=== PATIENT | female | born 1940 | race Caucasian/White ===

== ENCOUNTER → 2018-01-07 | Outpatient (CLI) | payer MEDICARE, BC ==
--- NOTE | 2018-01-07 09:53 | US ---
EXAMINATION TYPE: US abdomen complete DATE OF EXAM: 01/07/2018 COMPARISON: CT Chest today. CLINICAL HISTORY: I74.4 ABDOMEN BLOATING, HISTORY OF BREAST CANCER. Pt states ABD bloating, history o f breast CA EXAM MEASUREMENTS: Liver Length: 25.6 cm CBD: 0.2 cm Right Kidney: 9.3 x 4.4x 4.6 cm Left Kidney: 11.4 x 7.1 x 5.5 cm Morbidly obese pt, difficult scan Pancreas: Body wnl, head and tail obscured by overlying bowel gas Liver: Increased attenuation Gallbladder: Surgically absent Evidence for sonographic Gipson's sign: No CBD: wnl Spleen: Unable to visualize due to large pt body habitus and position Right Kidney: Appeared atrophic Left Kidney: wnl Upper IVC: wnl Abd Aorta: Obscured by overlying bowel gas Pt has area of skin "dimpling" LLQ, area scanned and no abnormality could be appreciated The visualized liver is heterogeneously hyperechoic consistent with fatty infiltration as seen on rec ent CT. The intrahepatic portion of the IVC and proximal abdominal aorta are within normal limits leif th seen better on recent CT. Gallbladder noted surgically absent. Common bile duct is unremarkable. The visualized portions of the pancreas are homogenous. Portions obscured by overlying bowel gas vijay ear within normal limits on same day CT . The spleen is suboptimally evaluated on ultrasound but appe ared unremarkable on recent CT. Right kidney is smaller in size with cortical thinning. No hydronephr osis evident bilaterally. No renal lesions are seen. IMPRESSION: Marked fatty infiltration of liver. Asymmetric atrophy of right kidney.
== END ==
LOC: RADUSWWP 12:00
PROVIDERS: ATTEND Internal Medicine Medical Oncology
DX: K76.0 Fatty (change of) liver, not elsewhere classified (principal); N26.1 Atrophy of kidney (terminal)
CPT/HCPCS: 76700

== ENCOUNTER → 2018-01-07 | Outpatient (CLI) | payer MEDICARE, BC ==
--- NOTE | 2018-01-07 10:21 | CT ---
EXAMINATION TYPE: CT chest w con DATE OF EXAM: 01/07/2018 COMPARISON: NONE HISTORY: Shortness of breath CT DLP: 835.5 mGycm. Automated Exposure Control for Dose Reduction was Utilized. TECHNIQUE: CT scan of the thorax is performed following with IV Contrast, patient injected with 100 mL of Isovue 300. FINDINGS: LUNGS: There is subsegmental multifocal lingular and bibasilar atelectasis. No focal consolidation or concerning pulmonary mass. No pulmonary fibrosis are significant emphysematous changes. There is no pleural effusion or pneumothorax seen. The tracheobronchial tree is patent. MEDIASTINUM: The stomach is largely intrathoracic in folds upon itself. There is also herniation of m esenteric fat, a portion of the dorsal pancreas, and mesenteric vessels through the diaphragmatic def ect. There are no greater than 1 cm hilar or mediastinal lymph nodes. No pericardial effusion is se en. The main pulmonary artery is enlarged measuring 3.8 cm. Mild three-vessel coronary artery calcif ications are seen. Ascending thoracic aorta is nonenlarged. There is incidental note is made of a bov ine aortic arch. OTHER: Hepatic parenchyma is diffusely hypoattenuated in comparison to that of the spleen, most comm only seen in hepatic steatosis. This finding limits evaluation for hepatic masses. No gross evidence of hepatic mass is seen. No intrahepatic biliary ductal dilatation. There is volume averaging over th e left adrenal gland on axial images with no discrete lesion seen on coronal images. Mild degenerativ e changes of the thoracic spine are noted. IMPRESSION: 1. Large hiatal hernia/predominantly intrathoracic stomach with herniation of mesenteric fat, vascula ture, and a portion of the dorsal pancreas into the posterior mediastinum impressing upon the lower l obes and creating atelectasis. 2. Scattered subsegmental multifocal atelectasis with no concerning pulmonary mass or consolidation. No findings of interstitial lung disease, pulmonary fibrosis or focal consolidation. 3. Enlargement of the main pulmonary artery, that may clinically correlate with pulmonary arterial hy pertension.
== END | disposition home or self-care (01) ==
LOC: RADCTMAIN 07:38
PROVIDERS: ATTEND Internal Medicine
DX: J98.11 Atelectasis (principal); I77.89 Other specified disorders of arteries and arterioles
CPT/HCPCS: 82565; 84520; 71260; 36415; Q9967

== ENCOUNTER 2018-06-30 12:38 | Inpatient (IN) | payer MEDICARE, BC ==
[2018-06-30] MEDS ORDERED: SODIUM CHLORIDE 0.9% 500 ML 500 ML IV STA (12:43)
[2018-06-30] MEDS ORDERED: EPINEPHrine 10 ML SYRINGE (0.1 MG/ML) ONE (12:48)
[2018-06-30] MEDS ORDERED: SODIUM BICARB 8.4% 50 ML SYR (1 MEQ/ML) ONE (12:48)
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
--- NOTE | 2018-06-30 13:09 | XR ---
EXAMINATION TYPE: XR chest 1V portable DATE OF EXAM: 06/30/2018 COMPARISON: Outside chest x-ray one day earlier. CT chest January 07, 2018. HISTORY: Cardiac arrest. TECHNIQUE: Single AP portable frontal supine view of the chest is obtained. FINDINGS: There is new endotracheal tube roughly 4 to 5 cm above the severiano at superior aortic knob level. Overlying defibrillator pad and EKG leads are seen. There is continued progression of right jair ng opacity without large right pleural effusion identified increased in size from chest x-ray one day earlier. There is persistent left basilar opacity. Cardiac silhouette size is stable and upper limit s of normal. No distinct mediastinal shift is seen. Retrocardiac opacity consistent with large hiatal hernia remains present. Osseous structures are intact. IMPRESSION: 1. New endotracheal tube satisfactory in position. 2. Large right pleural effusion increased in size from one day earlier. Patchy left basilar acute ate lectasis and/or infiltrate redemonstrated not significantly changed from one day earlier.
[2018-06-30] MEDS ORDERED: LIDOCAINE 1% INJ 10MG/ML (20 ML MDV) ONE (13:20)
[2018-06-30] MEDS ORDERED: ASPIRIN 325 MG TAB ONE (13:21)
[2018-06-30 13:23] LABS: Albumin 2.7 g/dL (3.5-5.0); Calcium 10.1 mg/dL (8.4-10.2); Magnesium 2.7 mg/dL (1.6-2.3); Total Bilirubin 0.7 mg/dL (0.2-1.3); Total Protein 5.5 g/dL (6.3-8.2)
[2018-06-30] MEDS ORDERED: NOREPINEPHRINE 4 MG in SODIUM CHLORIDE 0.9% 250 ML IV ONE ×2 (13:26→13:31)
[2018-06-30] MEDS ORDERED: LIDOCAINE 1% INJ 10MG/ML (20 ML MDV) SQ ONE (13:26)
[2018-06-30] MEDS ORDERED: ASPIRIN 325 MG TAB OG-TUBE ONE (13:27)
[2018-06-30] MEDS ORDERED: IV FLUID CONTINUATION 1,000 ML IV ONE (13:32)
[2018-06-30 13:38] LABS: Anisocytosis Slight; HCT 38.6 % (34.0-46.0); HGB 10.2 gm/dL (11.4-16.0); Hypochromasia Marked; MCH 23.3 pg (25.0-35.0); MCHC 26.5 g/dL (31.0-37.0); MCV 88.1 fL (80.0-100.0); Mean Platelet Volume 9.8; Platelet Count 340 k/uL (150-450); Potassium 6.5 mmol/L (3.5-5.1); RBC 4.38 m/uL (3.80-5.40); RDW 17.6 % (11.5-15.5); WBC 30.7 k/uL (3.8-10.6)
[2018-06-30 13:40] LABS: Creatine Kinase 25 U/L (30-135)
[2018-06-30] MEDS ORDERED: INSULIN REGULAR 100 UNIT/ML VIAL IV STA (13:40)
[2018-06-30] MEDS ORDERED: DEXTROSE 50%-WATER 50 ML SYRINGE IVP STA (13:40)
[2018-06-30] MEDS ORDERED: IOPAMIDOL-370 125ML BTL INJ ONE (13:42)
[2018-06-30] MEDS ORDERED: RX INFO: IV CONTRAST WAS GIVEN 1 EACH MISC MISCELLANE PRN (13:49)
[2018-06-30 13:53] LABS: Creatine Kinase MB 1.1 ng/mL (0.0-2.4); Troponin I <0.012 ng/mL (0.000-0.034)
[2018-06-30] MEDS ORDERED: SODIUM BICARB 8.4% 50 ML VIAL (1 MEQ/ML) IV ONE (13:54)
[2018-06-30 14:06] LABS: D-Dimer 8.56 mg/L FEU (<0.60); INR 1.1 (<1.2); Prothrombin Time 11.7 sec (9.0-12.0)
[2018-06-30 14:09] LABS: Glucose,Whole Blood 363 mg/dL (75-99)
[2018-06-30 14:17] LABS: Lymphocytes # (M) 3.68 k/uL (1.0-4.8); Metamyelocytes # (M) 0.61 k/uL (0); Metamyelocytes % 2 %; Nucleated Red Blood Cells 0 /100 WBC (0-0)
[2018-06-30 14:18] LABS: Band Neutrophils % 7 %; Monocytes # (M) 1.84 k/uL (0-1.0); Myelocytes # (M) 0.31 k/uL (0); Myelocytes % 1 %; Neutrophils % (M) 74 %; Total Cells Counted 200
[2018-06-30 14:19] LABS: Toxic Granulation Present
[2018-06-30 14:20] LABS: Poikilocytosis (M) Present
[2018-06-30 14:29] LABS: ABG Base Excess -15.7 mmol/L; ABG HCO3 15 mmol/L (21-25); ABG Oxygen Saturation 95.7 % (94-97); ABG PCO2 52 mmHg (35-45); ABG PO2 108 mmHg (83-108); ABG TCO2 16 mmol/L (19-24)
[2018-06-30] MEDS: SODIUM CHLORIDE 0.9% 1,000 ML IV SCH (14:52)
[2018-06-30 14:57] LABS: Partial Thromboplastin Time 29.8 sec (22.0-30.0)
--- NOTE | 2018-06-30 14:58 | XR ---
EXAMINATION TYPE: XR chest 1V portable DATE OF EXAM: 06/30/2018 COMPARISON: Prior chest x-ray same dated earlier time HISTORY: Intubated and abnormal chest x-ray TECHNIQUE: Single frontal view of the chest is obtained. FINDINGS: Endotracheal tube is overlying the tracheal air column in appropriate position. NG tube baxter s been placed in the interval, tube is coursing towards the upper abdomen and the tube tip is not inc luded on the exam. There is opacification of the right hemithorax. There are overlying cardiac leads. Heart is obscured. IMPRESSION: Worsening right pleural effusion. NG tube is described.
[2018-06-30] MEDS ORDERED: SODIUM BICARB 8.4% 50 ML SYR (1 MEQ/ML) IV ONE (15:16)
[2018-06-30] MEDS ORDERED: CISATRACURIUM 2 MG/ML 5 ML VIAL IV ONE ×2 (15:16→20:44)
--- NOTE | 2018-06-30 15:22 | CONS ---
CONSULTATION Zeynep is a 77-year-old lady with history of [id number] diabetes who came to the hospital having had a cardiac arrest at home. She had sudden onset cardiac respiratory arrest, was apparently down for almost 20 minutes. I do not have all this information from the [facility]. She was resuscitated, intubated, placed on vent and brought to the ER where she has a pulse. EKG shows acute inferior wall myocardial infarction. Blood pressure is around 100 systolic. She did drop her blood pressure once and received epinephrine and had to be briefly resuscitated. She does not have any family. There are a few friends with her. I do not have any other history on her. PAST MEDICAL HISTORY, MEDICATIONS, ALLERGIES, FAMILY HISTORY, SOCIAL HISTORY, REVIEW OF SYSTEMS: I am unable to obtain from the patient who is intubated and has had a recent cardiac arrest. It is very likely that patient has suffered significant encephalopathy, but there is no way for us to assess this at this time. Patient will be taken to cardiac catheterization to see if we can perform angioplasty and if that would change her outcome, but her prognosis is very guarded. PHYSICAL EXAM: She is intubated on vent, unresponsive. Heart rate is around 60 beats per minute. Blood pressure is 105/60, respiratory rate is 18. Chest exam reveals diminished air entry at the bases, heart exam reveals first and second heart sounds. No gallop. Exam of extremities did not reveals chronic stasis changes. Her groin appears excoriated. Labs are pending at this time. ASSESSMENT: Acute inferior wall myocardial infarction with cardiac arrest. PLAN: Will proceed with cardiac catheterization with possible angioplasty. We hope that this may make a difference for the patient. It is very difficult to assess her neurological status. It is likely that she has suffered hypoxic encephalopathy. Will do will do the heroic measures that we can. MMODL / IJN: [id number] /
[2018-06-30] MEDS ORDERED: HEPARIN SODIUM,PORCINE 5,000 UNIT/ML 1 ML VIAL IV PRN (15:25)
[2018-06-30 15:33] LABS: Glucose,Whole Blood 254 mg/dL (75-99)
--- NOTE | 2018-06-30 16:04 | CC ---
CARDIAC CATHETERIZATION REPORT INDICATION: Cardiac arrest, probably secondary to acute inferior wall myocardial infarction. PROCEDURE NOTE: Left heart catheterization was performed from the right femoral artery using standard Ivonne catheters. The patient is intubated on vent and unresponsive without any spontaneous activity. The patient tolerated the procedure fairly well. FINDINGS: HEMODYNAMICS: Left ventricular end-diastolic pressure is 14-16 mm there is no significant gradient across the aortic valve. LEFT VENTRICULOGRAM: Left ventriculogram shows a hyperdynamic LV with an ejection fraction of 70%. There is no evidence of significant mitral regurgitation. ANGIOGRAPHIC DATA: LEFT MAIN CORONARY ARTERY: Left main coronary artery is a normal-sized vessel and is free of stenosis. Divides into left anterior descending coronary artery and circumflex coronary artery. LEFT ANTERIOR DESCENDING CORONARY ARTERY: LAD and its branches, circumflex coronary artery and its branches are free of significant stenosis. RIGHT CORONARY ARTERY : Right coronary artery is a nondominant vessel and is free of significant stenosis. CONCLUSIONS: 1. No significant coronary artery disease. 2. Normal LV systolic function. PLAN: The exact etiology for her cardiac arrest is unclear, which it is not related to acute myocardial infarction. She could have had a massive PE. D-dimer is pending at this time. BUN and creatinine are elevated at 30 and 1.6. Potassium is high and we have given her insulin dextrose. We will recheck them and treat them as needed. Chest x- ray, which shows pleural effusion and white cell count is elevated at 30. MMARPIT / GINON: [id number] /
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
[2018-06-30] MEDS ORDERED: INSULIN REGULAR BOLUS (FROM DRIP BAG) IV PRN (16:41)
[2018-06-30] MEDS ORDERED: INSULIN REGULAR 100 UNIT in SODIUM CHLORIDE 0.9% 100 ML IV SCH (16:45)
[2018-06-30 16:54] LABS: Glucose,Whole Blood 193 mg/dL (75-99)
[2018-06-30] MEDS ORDERED: NOREPINEPHRINE 16 MG in SODIUM CHLORIDE 0.9% 250 ML IV SCH (18:00)
[2018-06-30] MEDS ORDERED: NOREPINEPHRINE 4 MG in SODIUM CHLORIDE 0.9% 250 ML IV SCH (18:15)
[2018-06-30 18:18] LABS: Glucose,Whole Blood 193 mg/dL (75-99)
[2018-06-30] MEDS ORDERED: HEPARIN SOD,PORK IN 0.45% NACL 25,000 UNIT in 0.45% NACL 1 250ML.BAG IV SCH (19:00)
[2018-06-30] MEDS: IPRATROPIUM-ALBUTEROL 3 ML NEB INHALATION SCH ×2 (19:34→23:10)
[2018-06-30 20:09] LABS: Glucose,Whole Blood 191 mg/dL (75-99)
--- NOTE | 2018-06-30 21:01 | XR ---
EXAMINATION TYPE: XR chest 1V portable DATE OF EXAM: 06/30/2018 COMPARISON: Today HISTORY: Check line placement TECHNIQUE: Single frontal view of the chest is obtained. FINDINGS: Endotracheal tube is 5 cm from the severiano. Nasogastric tube appears to be in the stomach. There is left-sided jugular catheter with the tip at the top of the right atrium. No pneumothorax. Th ere is complete opacification right hemithorax. IMPRESSION: Heart and lungs unchanged compared to last exam. Right-sided pulmonary consolidation and hydrothorax.
[2018-06-30 21:16] LABS: ABG Base Excess -7.7 mmol/L; ABG HCO3 21 mmol/L (21-25); ABG Oxygen Saturation 86.6 % (94-97); ABG PCO2 61 mmHg (35-45); ABG PO2 64 mmHg (83-108); ABG TCO2 23 mmol/L (19-24)
[2018-06-30] MEDS: NOREPINEPHRINE 16 MG in SODIUM CHLORIDE 0.9% 250 ML IV SCH (22:45)
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
[2018-06-30 22:47] LABS: Glucose,Whole Blood 153 mg/dL (75-99)
[2018-06-30 23:44] LABS: Appearance,Urine Turbid (Clear); Bacteria,Urine Many /hpf; Bilirubin,Urine Negative (Negative); Blood,Urine Large (Negative); Color,Urine Yellow; Glucose,Urine (UA) 1+ (Negative); Ketones,Urine Negative (Negative); Leukocyte Esterase,Urine Large (Negative); Mucus,Urine Few /hpf; Nitrite,Urine Negative (Negative); PH, Urine 5.5 (5.0-8.0); Protein,Urine 2+ (Negative); RBC,Urine 83 /hpf (0-5); Specific Gravity,Urine 1.027 (1.001-1.035); Urobilinogen,Urine <2.0 mg/dL (<2.0); WBC,Urine >182 /hpf (0-5)
[2018-06-30 23:58] LABS: Glucose,Whole Blood 159 mg/dL (75-99)
[2018-07-01 01:09] LABS: Glucose,Whole Blood 162 mg/dL (75-99)
[2018-07-01 02:14] LABS: Glucose,Whole Blood 153 mg/dL (75-99)
[2018-07-01 03:11] LABS: Glucose,Whole Blood 164 mg/dL (75-99)
[2018-07-01] MEDS: IPRATROPIUM-ALBUTEROL 3 ML NEB INHALATION SCH ×4 (03:32→16:00)
[2018-07-01 03:56] LABS: Glucose,Whole Blood 154 mg/dL (75-99)
[2018-07-01] MEDS: SODIUM CHLORIDE 0.9% 1,000 ML IV SCH (04:27)
[2018-07-01 04:43] LABS: ABG Base Excess -4.6 mmol/L; ABG HCO3 22 mmol/L (21-25); ABG Oxygen Saturation 95.7 % (94-97); ABG PCO2 43 mmHg (35-45); ABG PH 7.31 (7.35-7.45); ABG PO2 86 mmHg (83-108); ABG TCO2 23 mmol/L (19-24)
[2018-07-01 04:58] LABS: Glucose,Whole Blood 153 mg/dL (75-99)
[2018-07-01 05:19] LABS: Hemoglobin A1C 9.4 % (4.0-6.0)
[2018-07-01 05:50] LABS: Calcium 8.6 mg/dL (8.4-10.2); Magnesium 2.1 mg/dL (1.6-2.3); Phosphorus 8.3 mg/dL (2.5-4.5); Potassium 5.7 mmol/L (3.5-5.1)
[2018-07-01 05:59] LABS: Glucose,Whole Blood 158 mg/dL (75-99)
[2018-07-01 06:12] LABS: Anisocytosis Slight; HCT 38.7 % (34.0-46.0); HGB 11.2 gm/dL (11.4-16.0); Hypochromasia Marked; MCH 23.5 pg (25.0-35.0); MCHC 29.1 g/dL (31.0-37.0); Mean Platelet Volume 7.9; Microcytosis Slight; Platelet Count 372 k/uL (150-450); RBC 4.78 m/uL (3.80-5.40); RDW 17.9 % (11.5-15.5); WBC 38.8 k/uL (3.8-10.6)
[2018-07-01] MEDS: NOREPINEPHRINE 16 MG in SODIUM CHLORIDE 0.9% 250 ML IV SCH (06:46)
[2018-07-01 06:51] LABS: Glucose,Whole Blood 147 mg/dL (75-99)
--- NOTE | 2018-07-01 07:53 | XR ---
EXAMINATION TYPE: XR chest 1V DATE OF EXAM: 07/01/2018 COMPARISON: Prior chest x-ray 06/30/2018 HISTORY: Intubated TECHNIQUE: Single frontal view of the chest is obtained. FINDINGS: Endotracheal tube, left jugular central venous catheter are overlying appropriate position s. There is opacification right hemithorax as on prior exam. Heart is obscured. Left lung shows proba ble basilar atelectatic changes. There are overlying cardiac leads. IMPRESSION: Stable findings. Large right pleural effusion and associated atelectasis
--- NOTE | 2018-07-01 07:56 | XR ---
Right hand HISTORY: Trauma, swelling and ecchymosis 3 views of the right hand There is overlying artifact. Bone mineralization, joint spaces and alignment are maintained. Soft tis magdy swelling is noted. Mild arthropathy at the carpometacarpal joint of the first digit. Digits are f lexed which may limit sensitivity. IMPRESSION: Soft tissue swelling. Mild osteoarthritis. No fracture or dislocation evident.
--- NOTE | 2018-07-01 08:05 | PCN ---
PROCEDURE NOTE PROCEDURE: Left triple-lumen into internal jugular catheter insertion. CHANGE MANAGEMENT MANAGER: Dominick Ugalde MD INDICATION: Hemodynamic monitoring/Intravenous access. A time-out was completed verifying correct patient, procedure, site, positioning , and implant(s) or special equipment if applicable. The patient was placed in a dependent position appropriate for triple lumen catheter placement based on the vein to be cannulated. The patient's left internal jugular site was prepped and draped in sterile fashion. 1% Lidocaine was used to anesthetize the surrounding skin area. A triple lumen 9F Cordis catheter was introduced into the left int. jugular vein using Seldinger technique. The catheter was threaded smoothly over the guide wire and appropriate blood return was obtained. Each lumen of the catheter was evacuated of air and flushed with sterile saline. The catheter was then sutured in place to the skin and a sterile dressing applied by the nurse. Perfusion to the extremity distal to the point of catheter insertion was checked and found to be adequate. There was no immediate complication. Good blood flow was good blood return from all 3 ports. The patient tolerated the procedure well. There was good placement of the central line on chest x-ray. There was no complication. MMODL / IJN: [id number] / MTDD
[2018-07-01 08:33] LABS: Glucose,Whole Blood 151 mg/dL (75-99)
[2018-07-01 08:49] LABS: Band Neutrophils % 9 %; Lymphocytes # (M) 1.16 k/uL (1.0-4.8); Monocytes # (M) 2.72 k/uL (0-1.0); Neutrophils % (M) 81 %; Nucleated Red Blood Cells 0 /100 WBC (0-0); Total Cells Counted 100
--- NOTE | 2018-07-01 09:31 | CT ---
EXAMINATION TYPE: CT brain wo con DATE OF EXAM: 07/01/2018 COMPARISON: None HISTORY: Carotid stenosis and frequent falls. CT DLP: 300 mGycm Automated exposure control for dose reduction was used. FINDINGS: Moderate generalized degenerative change with a slightly greater frontal lobe component. No acute hem orrhage or mass effect. There is motion artifact but the calvarium appears to be grossly intact. Hype rostosis of the frontal bone noted. Low-attenuation the white matter is nonspecific but most typical remote microvascular ischemia. IMPRESSION: 1.THE EXAM IS LIMITED DUE TO MOTION ARTIFACT. NO SIZABLE INTRACRANIAL HEMORRHAGE OR MASS EFFECT IDENT IFIED. 2. DEGENERATIVE CHANGES.
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
[2018-07-01] MEDS ORDERED: PIPERACILLIN-TAZOBACTAM 3.375 GM in SODIUM CHLORIDE 0.9% 100 ML IVPB STA (10:24)
[2018-07-01 10:27] LABS: Glucose,Whole Blood 150 mg/dL (75-99)
[2018-07-01] MEDS ORDERED: HEPARIN SOD,PORK IN 0.45% NACL 25,000 UNIT in 0.45% NACL 1 250ML.BAG IV SCH (10:45)
[2018-07-01 11:08] VITALS: BMI 47.2
[2018-07-01 11:38] LABS: Glucose,Whole Blood 163 mg/dL (75-99)
[2018-07-01 12:11] LABS: Glucose,Whole Blood 167 mg/dL (75-99)
--- NOTE | 2018-07-01 12:32 | PN ---
PROGRESS NOTE This is a 77-year-old lady that presented to hospital yesterday following a cardiorespiratory arrest. She had initial ST-segment elevation in the inferior leads and we took her to lab, did not have significant obstructive CAD and her LV function was normal. Subsequently, her D-dimer had come back elevated, we wanted to start her on IV heparin, but the livestock buyer, filter tip inspector did not feel it was safe to start her on heparin at that time. Since that time, patient has had a CT scan of the brain and there is no evidence of intracranial bleed. Patient seemed to have suffered significant hypoxic encephalopathy, does not have any spontaneous activity, seemed to have suffered significant hypoxic encephalopathy. At the time of my evaluation this morning she is intubated on vent, on the monitor she is in sinus rhythm. She has a large pleural effusion. Patient has a history of breast cancer and was being followed in the outpatient setting by her filter tip inspector. PHYSICAL EXAM: Patient is intubated, requiring Levophed for hypotension. Remains in sinus rhythm. Chest exam reveals diminished air entry on the right side. Heart exam reveals first and second heart sounds. No gallop. Exam of the extremities reveals blackish discoloration of the right hand, but the radial pulse is palpable. She has mottling of the distal extremities, but the foot pulses are intact. ASSESSMENT: Status post cardiac respiratory arrest. The exact etiology is unclear, could be due to pulmonary embolism, especially given the history of breast cancer. Management is per the filter tip inspector, livestock buyer. Patient is currently in the process of being transferred to another institution. MMODL / IJN: [id number] /
[2018-07-01 13:06] LABS: Glucose,Whole Blood 148 mg/dL (75-99)
[2018-07-01 13:08] VITALS: BP 139/61; TEMP 99.1
[2018-07-01 14:09] LABS: Glucose,Whole Blood 141 mg/dL (75-99)
[2018-07-01 15:53] VITALS: PULSE 124; RESP 44
[2018-07-01] MEDS ORDERED: ATROPINE OPHTH SOLN 1% 5ML BTL SUBLINGUAL PRN (16:02)
[2018-07-01] MEDS ORDERED: MORPHINE SULFATE 2 MG/ML SYRINGE IV PRN (16:02)
[2018-07-01] MEDS ORDERED: MORPHINE SULFATE (100 MG/2 ML) 100 MG in SODIUM CHLORIDE 0.9% 100 ML IV SCH (16:15)
[2018-07-01] MEDS ORDERED: SCOPOLAMINE 1.5MG/72HR PATCH TRANSDERM SCH (16:30)
--- NOTE | 2018-07-01 21:44 | P.PN ---
Subjective Progress Note Date: 07/01/18 Principal diagnosis: Acute cardiopulmonary arrest status post CPR and epi 3 Acute on chronic hypoxic respiratory failure Hypotension with possible sepsis/septic shock Large right-sided pleural effusion. Malignant with history of breast cancer versus CHF. Pt. is a 77-year-old female with a known history of diabetes type 2, hypothyroidism and history of breast cancer, COPD on home oxygen was brought to the hospital by EMS status post cardiopulmonary arrest. Patient had severe worsening shortness of breath while at home and EMS was called. Patient had CPR and epinephrine 3 as well as bicarb injection. Patient did get spontaneous circulation after coming to ER. Down time is probably around 20 minutes. Chest x-ray showed new endotracheal insertion. Large right pleural effusion increases in size from the earlier one day. Patchy left basilar acute atelectasis/and or infiltrate read demonstrated, stated not significantly changed from one day earlier. Next and EKG showed acute inferior wall CA and STEMI team elected. Patient was immediately taken to cardiac catheterization which showed no same and obstruction in the coronaries. Patient was transferred to intensive care for further management. Patient was seen at Dr. German's office yesterday with worsening shortness of breath and was advised multiple times to go to ER for thoracentesis as soon as possible due to chest x-ray finding of new right-sided pleural effusion. O2 saturation the time was around 87%. Patient never came to ER yesterday. Today patient started having shortness of breath and decided to drive herself to hospital. She eventually stopped her car on somebody's lawn. EMS was called and patient was found unresponsive and pulseless at the time. Currently patient is intubated. Troponin negative. BNP 3950, WBC 30.7. 07/01/18 Patient remains on mechanical ventilator. Assist control with PEEP of 9. No fever no chills. Otherwise leukocytosis increased 38. Patient was also started on antibiotics. CT head was done which showed motion artifact and no evidence of acute hemorrhage or midline shift noted. Chest x-ray showed stable findings. Large right-sided pleural effusion and associated atelectasis. Family also patient to be transferred to this is a facility for further management and neurology evaluation. Patient is otherwise not responding to painful stimuli. Not much change from yesterday. Current medications reviewed Objective - Vital Signs Vital signs: Vital Signs Temp 98.0 F 07/01/18 04:00 Pulse 109 H 07/01/18 08:05 Resp 54 H 07/01/18 07:00 BP 138/75 07/01/18 07:00 Pulse Ox 93 L 07/01/18 07:00 Intake & Output 06/30/18 07/01/18 07/01/18 18:59 06:59 18:59 Intake Total 281.633 1294.453 129.688 Output Total 10 50 0 Balance 405.247 1514.453 129.688 Weight 113.398 kg 117 kg Intake: IV 453.8 900 75 Sodium Chloride 0.9% 1, 375 900 75 000 ml @ 75 mls/hr IV . [id number] [facility] Rx#:[id number] Intake, IV Titration 250.000 522.453 54.688 Amount Insulin Regular 100 unit 30.923 In Sodium Chloride 0.9% 100 ml @ Per Protocol IV .Q0M [facility] Rx#:[id number] Norepinephrine 16 mg In 241.530 54.688 Sodium Chloride 0.9% 250 ml @ Titrate IV .Q0M [facility] Rx#:[id number] Norepinephrine 4 mg In 250.000 Sodium Chloride 0.9% 250 ml @ 5 MCG/MIN 18.75 mls/ hr IV .[id number] ONE Rx#: [id number] Norepinephrine 4 mg In 250 Sodium Chloride 0.9% 250 ml @ Titrate IV .Q0M [facility] Rx#:[id number] Output: Urine 10 50 0 Other: Voiding Method Indwelling Catheter Indwelling Catheter ABP, PAP, CO, CI - Last Documented Arterial Blood Pressure 125/57 - Exam Patient is lying in the bed . Currently on mechanical ventilator. Patient does have involuntary jerky movements.. HEENT: Normocephalic. Neck is supple. Pupils sluggishly reactive. Nostrils clear. Oral cavity is moist. Ears reveal no drainage. Neck reveals no JVD, carotid bruits, or thyromegaly. CHEST EXAMINATION: Trachea is central. Symmetrical expansion. On mechanical ventilator. Diminished breath sounds.. CARDIAC: Normal S1, S2 with no gallops. No murmurs ABDOMEN: Soft. Bowel sounds normal. Morbidly obese. No abdominal bruits. Extremities: reveal no edema. No clubbing or cyanosis Neurologically . Patient is on mechanical ventilator now. Patient does have involuntary twitching movements and eye gazed upward and rt. Skin: Patient does have bilateral lower extremity scaly and red patches possible yeast infection. Psychiatric: Could not be assessed Musculoskeletal: No joint swelling or deformity. - Labs CBC & Chem 7: 07/01/18 05:00 07/01/18 05:00 Labs: Abnormal Lab Results - Last 24 Hours (Table) 06/30/18 06/30/18 06/30/18 Range/Units 12:44 12:44 12:44 WBC 30.7 H (3.8-10.6) k/uL Hgb 10.2 L (11.4-16.0) gm/dL MCH 23.3 L (25.0-35.0) pg MCHC 26.5 L (31.0-37.0) g/dL RDW 17.6 H (11.5-15.5) % Neutrophils # (Manual) 24.80 H (1.3-7.7) k/uL Monocytes # (Manual) 1.84 H (0-1.0) k/uL Metamyelocytes # (Man) 0.61 H (0) k/uL Myelocytes # (Manual) 0.31 H (0) k/uL D-Dimer (<0.60) mg/L FEU ABG pH (7.35-7.45) ABG pCO2 (35-45) mmHg ABG pO2 (83-108) mmHg ABG HCO3 (21-25) mmol/L ABG Total CO2 (19-24) mmol/L ABG O2 Saturation (94-97) % Sodium 136 L (137-145) mmol/L Potassium 6.5 H* (3.5-5.1) mmol/L Chloride (98-107) mmol/L Carbon Dioxide 14 L (22-30) mmol/L BUN 30 H (7-17) mg/dL Creatinine 1.67 H (0.52-1.04) mg/dL Glucose 339 H (74-99) mg/dL POC Glucose (mg/dL) (75-99) mg/dL Hemoglobin A1c (4.0-6.0) % Phosphorus (2.5-4.5) mg/dL Magnesium 2.7 H (1.6-2.3) mg/dL AST 57 H (14-36) U/L Total Creatine Kinase 25 L (30-135) U/L Total Protein 5.5 L (6.3-8.2) g/dL Albumin 2.7 L (3.5-5.0) g/dL Urine Appearance (Clear) Urine Protein (Negative) Urine Glucose (UA) (Negative) Urine Blood (Negative) Ur Leukocyte Esterase (Negative) Urine RBC (0-5) /hpf Urine WBC (0-5) /hpf Urine WBC Clumps (None) /hpf Urine Bacteria (None) /hpf Urine Mucus (None) /hpf 06/30/18 06/30/18 06/30/18 Range/Units 12:44 12:44 12:45 WBC (3.8-10.6) k/uL Hgb (11.4-16.0) gm/dL MCH (25.0-35.0) pg MCHC (31.0-37.0) g/dL RDW (11.5-15.5) % Neutrophils # (Manual) (1.3-7.7) k/uL Monocytes # (Manual) (0-1.0) k/uL Metamyelocytes # (Man) (0) k/uL Myelocytes # (Manual) (0) k/uL D-Dimer 8.56 H (<0.60) mg/L FEU ABG pH (7.35-7.45) ABG pCO2 (35-45) mmHg ABG pO2 (83-108) mmHg ABG HCO3 (21-25) mmol/L ABG Total CO2 (19-24) mmol/L ABG O2 Saturation (94-97) % Sodium (137-145) mmol/L Potassium (3.5-5.1) mmol/L Chloride (98-107) mmol/L Carbon Dioxide (22-30) mmol/L BUN (7-17) mg/dL Creatinine (0.52-1.04) mg/dL Glucose (74-99) mg/dL POC Glucose (mg/dL) 254 H (75-99) mg/dL Hemoglobin A1c 9.4 H (4.0-6.0) % Phosphorus (2.5-4.5) mg/dL Magnesium (1.6-2.3) mg/dL AST (14-36) U/L Total Creatine Kinase (30-135) U/L Total Protein (6.3-8.2) g/dL Albumin (3.5-5.0) g/dL Urine Appearance (Clear) Urine Protein (Negative) Urine Glucose (UA) (Negative) Urine Blood (Negative) Ur Leukocyte Esterase (Negative) Urine RBC (0-5) /hpf Urine WBC (0-5) /hpf Urine WBC Clumps (None) /hpf Urine Bacteria (None) /hpf Urine Mucus (None) /hpf 06/30/18 06/30/18 06/30/18 Range/Units 14:06 14:27 16:52 WBC (3.8-10.6) k/uL Hgb (11.4-16.0) gm/dL MCH (25.0-35.0) pg MCHC (31.0-37.0) g/dL RDW (11.5-15.5) % Neutrophils # (Manual) (1.3-7.7) k/uL Monocytes # (Manual) (0-1.0) k/uL Metamyelocytes # (Man) (0) k/uL Myelocytes # (Manual) (0) k/uL D-Dimer (<0.60) mg/L FEU ABG pH 7.06 L* (7.35-7.45) ABG pCO2 52 H (35-45) mmHg ABG pO2 (83-108) mmHg ABG HCO3 15 L (21-25) mmol/L ABG Total CO2 16 L (19-24) mmol/L ABG O2 Saturation (94-97) % Sodium (137-145) mmol/L Potassium (3.5-5.1) mmol/L Chloride (98-107) mmol/L Carbon Dioxide (22-30) mmol/L BUN (7-17) mg/dL Creatinine (0.52-1.04) mg/dL Glucose (74-99) mg/dL POC Glucose (mg/dL) 363 H 193 H (75-99) mg/dL Hemoglobin A1c (4.0-6.0) % Phosphorus (2.5-4.5) mg/dL Magnesium (1.6-2.3) mg/dL AST (14-36) U/L Total Creatine Kinase (30-135) U/L Total Protein (6.3-8.2) g/dL Albumin (3.5-5.0) g/dL Urine Appearance (Clear) Urine Protein (Negative) Urine Glucose (UA) (Negative) Urine Blood (Negative) Ur Leukocyte Esterase (Negative) Urine RBC (0-5) /hpf Urine WBC (0-5) /hpf Urine WBC Clumps (None) /hpf Urine Bacteria (None) /hpf Urine Mucus (None) /hpf 06/30/18 06/30/18 06/30/18 Range/Units 18:17 20:07 21:15 WBC (3.8-10.6) k/uL Hgb (11.4-16.0) gm/dL MCH (25.0-35.0) pg MCHC (31.0-37.0) g/dL RDW (11.5-15.5) % Neutrophils # (Manual) (1.3-7.7) k/uL Monocytes # (Manual) (0-1.0) k/uL Metamyelocytes # (Man) (0) k/uL Myelocytes # (Manual) (0) k/uL D-Dimer (<0.60) mg/L FEU ABG pH 7.15 L* (7.35-7.45) ABG pCO2 61 H (35-45) mmHg ABG pO2 64 L (83-108) mmHg ABG HCO3 (21-25) mmol/L ABG Total CO2 (19-24) mmol/L ABG O2 Saturation 86.6 L (94-97) % Sodium (137-145) mmol/L Potassium (3.5-5.1) mmol/L Chloride (98-107) mmol/L Carbon Dioxide (22-30) mmol/L BUN (7-17) mg/dL Creatinine (0.52-1.04) mg/dL Glucose (74-99) mg/dL POC Glucose (mg/dL) 193 H 191 H (75-99) mg/dL Hemoglobin A1c (4.0-6.0) % Phosphorus (2.5-4.5) mg/dL Magnesium (1.6-2.3) mg/dL AST (14-36) U/L Total Creatine Kinase (30-135) U/L Total Protein (6.3-8.2) g/dL Albumin (3.5-5.0) g/dL Urine Appearance (Clear) Urine Protein (Negative) Urine Glucose (UA) (Negative) Urine Blood (Negative) Ur Leukocyte Esterase (Negative) Urine RBC (0-5) /hpf Urine WBC (0-5) /hpf Urine WBC Clumps (None) /hpf Urine Bacteria (None) /hpf Urine Mucus (None) /hpf 06/30/18 06/30/18 06/30/18 Range/Units 22:44 22:50 23:57 WBC (3.8-10.6) k/uL Hgb (11.4-16.0) gm/dL MCH (25.0-35.0) pg MCHC (31.0-37.0) g/dL RDW (11.5-15.5) % Neutrophils # (Manual) (1.3-7.7) k/uL Monocytes # (Manual) (0-1.0) k/uL Metamyelocytes # (Man) (0) k/uL Myelocytes # (Manual) (0) k/uL D-Dimer (<0.60) mg/L FEU ABG pH (7.35-7.45) ABG pCO2 (35-45) mmHg ABG pO2 (83-108) mmHg ABG HCO3 (21-25) mmol/L ABG Total CO2 (19-24) mmol/L ABG O2 Saturation (94-97) % Sodium (137-145) mmol/L Potassium (3.5-5.1) mmol/L Chloride (98-107) mmol/L Carbon Dioxide (22-30) mmol/L BUN (7-17) mg/dL Creatinine (0.52-1.04) mg/dL Glucose (74-99) mg/dL POC Glucose (mg/dL) 153 H 159 H (75-99) mg/dL Hemoglobin A1c (4.0-6.0) % Phosphorus (2.5-4.5) mg/dL Magnesium (1.6-2.3) mg/dL AST (14-36) U/L Total Creatine Kinase (30-135) U/L Total Protein (6.3-8.2) g/dL Albumin (3.5-5.0) g/dL Urine Appearance Turbid H (Clear) Urine Protein 2+ H (Negative) Urine Glucose (UA) 1+ H (Negative) Urine Blood Large H (Negative) Ur Leukocyte Esterase Large H (Negative) Urine RBC 83 H (0-5) /hpf Urine WBC >182 H (0-5) /hpf Urine WBC Clumps Many H (None) /hpf Urine Bacteria Many H (None) /hpf Urine Mucus Few H (None) /hpf 07/01/18 07/01/18 07/01/18 Range/Units 01:05 02:13 03:10 WBC (3.8-10.6) k/uL Hgb (11.4-16.0) gm/dL MCH (25.0-35.0) pg MCHC (31.0-37.0) g/dL RDW (11.5-15.5) % Neutrophils # (Manual) (1.3-7.7) k/uL Monocytes # (Manual) (0-1.0) k/uL Metamyelocytes # (Man) (0) k/uL Myelocytes # (Manual) (0) k/uL D-Dimer (<0.60) mg/L FEU ABG pH (7.35-7.45) ABG pCO2 (35-45) mmHg ABG pO2 (83-108) mmHg ABG HCO3 (21-25) mmol/L ABG Total CO2 (19-24) mmol/L ABG O2 Saturation (94-97) % Sodium (137-145) mmol/L Potassium (3.5-5.1) mmol/L Chloride (98-107) mmol/L Carbon Dioxide (22-30) mmol/L BUN (7-17) mg/dL Creatinine (0.52-1.04) mg/dL Glucose (74-99) mg/dL POC Glucose (mg/dL) 162 H 153 H 164 H (75-99) mg/dL Hemoglobin A1c (4.0-6.0) % Phosphorus (2.5-4.5) mg/dL Magnesium (1.6-2.3) mg/dL AST (14-36) U/L Total Creatine Kinase (30-135) U/L Total Protein (6.3-8.2) g/dL Albumin (3.5-5.0) g/dL Urine Appearance (Clear) Urine Protein (Negative) Urine Glucose (UA) (Negative) Urine Blood (Negative) Ur Leukocyte Esterase (Negative) Urine RBC (0-5) /hpf Urine WBC (0-5) /hpf Urine WBC Clumps (None) /hpf Urine Bacteria (None) /hpf Urine Mucus (None) /hpf 07/01/18 07/01/18 07/01/18 Range/Units 03:54 04:42 04:56 WBC (3.8-10.6) k/uL Hgb (11.4-16.0) gm/dL MCH (25.0-35.0) pg MCHC (31.0-37.0) g/dL RDW (11.5-15.5) % Neutrophils # (Manual) (1.3-7.7) k/uL Monocytes # (Manual) (0-1.0) k/uL Metamyelocytes # (Man) (0) k/uL Myelocytes # (Manual) (0) k/uL D-Dimer (<0.60) mg/L FEU ABG pH 7.31 L (7.35-7.45) ABG pCO2 (35-45) mmHg ABG pO2 (83-108) mmHg ABG HCO3 (21-25) mmol/L ABG Total CO2 (19-24) mmol/L ABG O2 Saturation (94-97) % Sodium (137-145) mmol/L Potassium (3.5-5.1) mmol/L Chloride (98-107) mmol/L Carbon Dioxide (22-30) mmol/L BUN (7-17) mg/dL Creatinine (0.52-1.04) mg/dL Glucose (74-99) mg/dL POC Glucose (mg/dL) 154 H 153 H (75-99) mg/dL Hemoglobin A1c (4.0-6.0) % Phosphorus (2.5-4.5) mg/dL Magnesium (1.6-2.3) mg/dL AST (14-36) U/L Total Creatine Kinase (30-135) U/L Total Protein (6.3-8.2) g/dL Albumin (3.5-5.0) g/dL Urine Appearance (Clear) Urine Protein (Negative) Urine Glucose (UA) (Negative) Urine Blood (Negative) Ur Leukocyte Esterase (Negative) Urine RBC (0-5) /hpf Urine WBC (0-5) /hpf Urine WBC Clumps (None) /hpf Urine Bacteria (None) /hpf Urine Mucus (None) /hpf 07/01/18 07/01/18 07/01/18 Range/Units 05:00 05:00 05:58 WBC 38.8 H (3.8-10.6) k/uL Hgb 11.2 L (11.4-16.0) gm/dL MCH 23.5 L (25.0-35.0) pg MCHC 29.1 L (31.0-37.0) g/dL RDW 17.9 H (11.5-15.5) % Neutrophils # (Manual) 34.90 H (1.3-7.7) k/uL Monocytes # (Manual) 2.72 H (0-1.0) k/uL Metamyelocytes # (Man) (0) k/uL Myelocytes # (Manual) (0) k/uL D-Dimer (<0.60) mg/L FEU ABG pH (7.35-7.45) ABG pCO2 (35-45) mmHg ABG pO2 (83-108) mmHg ABG HCO3 (21-25) mmol/L ABG Total CO2 (19-24) mmol/L ABG O2 Saturation (94-97) % Sodium (137-145) mmol/L Potassium 5.7 H (3.5-5.1) mmol/L Chloride 109 H (98-107) mmol/L Carbon Dioxide (22-30) mmol/L BUN 46 H (7-17) mg/dL Creatinine 2.16 H (0.52-1.04) mg/dL Glucose 159 H (74-99) mg/dL POC Glucose (mg/dL) 158 H (75-99) mg/dL Hemoglobin A1c (4.0-6.0) % Phosphorus 8.3 H (2.5-4.5) mg/dL Magnesium (1.6-2.3) mg/dL AST (14-36) U/L Total Creatine Kinase (30-135) U/L Total Protein (6.3-8.2) g/dL Albumin (3.5-5.0) g/dL Urine Appearance (Clear) Urine Protein (Negative) Urine Glucose (UA) (Negative) Urine Blood (Negative) Ur Leukocyte Esterase (Negative) Urine RBC (0-5) /hpf Urine WBC (0-5) /hpf Urine WBC Clumps (None) /hpf Urine Bacteria (None) /hpf Urine Mucus (None) /hpf 07/01/18 07/01/18 07/01/18 Range/Units 06:49 08:31 10:26 WBC (3.8-10.6) k/uL Hgb (11.4-16.0) gm/dL MCH (25.0-35.0) pg MCHC (31.0-37.0) g/dL RDW (11.5-15.5) % Neutrophils # (Manual) (1.3-7.7) k/uL Monocytes # (Manual) (0-1.0) k/uL Metamyelocytes # (Man) (0) k/uL Myelocytes # (Manual) (0) k/uL D-Dimer (<0.60) mg/L FEU ABG pH (7.35-7.45) ABG pCO2 (35-45) mmHg ABG pO2 (83-108) mmHg ABG HCO3 (21-25) mmol/L ABG Total CO2 (19-24) mmol/L ABG O2 Saturation (94-97) % Sodium (137-145) mmol/L Potassium (3.5-5.1) mmol/L Chloride (98-107) mmol/L Carbon Dioxide (22-30) mmol/L BUN (7-17) mg/dL Creatinine (0.52-1.04) mg/dL Glucose (74-99) mg/dL POC Glucose (mg/dL) 147 H 151 H 150 H (75-99) mg/dL Hemoglobin A1c (4.0-6.0) % Phosphorus (2.5-4.5) mg/dL Magnesium (1.6-2.3) mg/dL AST (14-36) U/L Total Creatine Kinase (30-135) U/L Total Protein (6.3-8.2) g/dL Albumin (3.5-5.0) g/dL Urine Appearance (Clear) Urine Protein (Negative) Urine Glucose (UA) (Negative) Urine Blood (Negative) Ur Leukocyte Esterase (Negative) Urine RBC (0-5) /hpf Urine WBC (0-5) /hpf Urine WBC Clumps (None) /hpf Urine Bacteria (None) /hpf Urine Mucus (None) /hpf Microbiology - Last 24 Hours (Table) 06/30/18 22:50 Urine Culture - Preliminary Urine,Catheterized Assessment and Plan Assessment: Acute cardiopulmonary arrest status post CPR and AP injection. PEA> With downtime around 20 minutes Possible anoxic encephalopathy Acute on Chronic hypoxic respiratory failure requiring mechanical ventilator. Involuntary twitching movements. Status post cardiac catheterization. No significant stenosis. EKG showed inferior wall CA. Large right-sided pleural effusion. Possible malignant with history of breast cancer versus CHF Hypotension requiring pressor support Possible Sepsis with septic shock. Acute UTI Significant leukocytosis 30.7--38 Hyperkalemia 6.5--5.7. Patient was given dextrose and insulin in the ER. COPD on home oxygen via [place] history of breast cancer Hypothyroidism Diabetes type 2 Large hiatal hernia. Plan: Patient currently on mechanical ventilator. Continued on IV hydration and pressor support. Continue with IV antibiotics. Patient possibly had anoxic brain injury. CT head showed no acute CVA, hemorrhage, mass or midline shift. Initiated transferred to tertiary care facility for further management including evaluation by neurology. Family requested to be transferred to tertiary care facility. Further recommendations based on the clinical course. Pulmonary is on board. Prognosis is poor otherwise. Time with Patient: Greater than 30
--- NOTE | 2018-07-01 22:45 | P.DS ---
Providers Date of admission: 06/30/18 13:00 Expected date of discharge: 07/01/18 Attending physician: Jake Sainz Consults: 06/30/18 14:13 Consult Physician Urgent Consulting Provider: Simón German Reason/Comments: Cardiac arrest, Pleural effusion Do you want consulting provider notified?: Yes Primary care physician: Stated None Hospital Course: diagnosis Acute cardiopulmonary arrest status post CPR and Epi injection. PEA> With downtime around 20 minutes Possible anoxic encephalopathy Acute on Chronic hypoxic respiratory failure requiring mechanical ventilator. Large right pleural effusion with complete opacification of the right lung. Possible malignant effusion versus CHF. Involuntary twitching movements. Status post cardiac catheterization. No significant stenosis. EKG showed inferior wall AK. Large right-sided pleural effusion. Possible malignant with history of breast cancer versus CHF Hypotension requiring pressor support Possible Sepsis with septic shock. Acute UTI Significant leukocytosis 30.7--38 Hyperkalemia 6.5--5.7. Patient was given dextrose and insulin in the ER. COPD on home oxygen via [place] history of breast cancer Hypothyroidism Diabetes type 2 Large hiatal hernia. Hospital course Pt. is a 77-year-old female with a known history of diabetes type 2, hypothyroidism and history of breast cancer, COPD on home oxygen was brought to the hospital by EMS status post cardiopulmonary arrest. Patient had severe worsening shortness of breath while at home and EMS was called. Patient had CPR and epinephrine 3 as well as bicarb injection. Patient did get spontaneous circulation after coming to ER. Down time is probably around 20 minutes. Chest x-ray showed new endotracheal insertion. Large right pleural effusion increases in size from the earlier one day. Patchy left basilar acute atelectasis/and or infiltrate read demonstrated, stated not significantly changed from one day earlier. Next and EKG showed acute inferior wall AK and STEMI team elected. Patient was immediately taken to cardiac catheterization which showed no same and obstruction in the coronaries. Patient was transferred to intensive care for further management. Patient was seen at Dr. German's office yesterday with worsening shortness of breath and was advised multiple times to go to ER for thoracentesis as soon as possible due to chest x-ray finding of new right-sided pleural effusion. O2 saturation the time was around 87%. Patient never came to ER yesterday. Today patient started having shortness of breath and decided to drive herself to hospital. She eventually stopped her car on somebody's lawn. EMS was called and patient was found unresponsive and pulseless at the time. Currently patient is intubated. Troponin negative. BNP 3950, WBC 30.7. 07/01/18 Patient remains on mechanical ventilator. Assist control with PEEP of 9. No fever no chills. Otherwise leukocytosis increased 38. Patient was also started on antibiotics. CT head was done which showed motion artifact and no evidence of acute hemorrhage or midline shift noted. Chest x-ray showed stable findings. Large right-sided pleural effusion and associated atelectasis. Family wants patient to be transferred to this is a facility for further management and neurology evaluation. Patient is otherwise not responding to painful stimuli. Not much change from yesterday. I did discuss with transfer team at [facility] initially. Family is also agreeable to be transferred to [facility]. Also discussed with [facility] transfer team and MICU fellow. Patient is awaiting for bed at this time.. Otherwise Patient remained on mechanical ventilator. Patient did have cardiopulmonary arrest and suspected anoxic brain injury. Patient also having underlying pleural effusion large with complete opacification of right lung. Patient is still requiring 20 g of Levophed. Due to multiple complex medical problems and comorbid conditions, prognosis is poor. Family has decided to change CODE STATUS to comfort measures. Patient at 1645. Family has been notified. Plan - Discharge Summary New Discharge Prescriptions: No Action Oxybutynin Chloride [Ditropan] 5 mg PO DAILY Levothyroxine Sodium [Synthroid] 50 mcg PO DAILY Anastrozole [Arimidex] 1 mg PO DAILY metFORMIN HCL [Glucophage] 500 mg PO BID Hyoscyamine Sulfate [Levsin] 0.125 mg PO Q6H PRN PRN Reason: CRAMPS Tiotropium 18 Mcg/Puff [Spiriva] 1 puff INHALATION RT-DAILY Glimepiride [Amaryl] 1 mg PO AC-BRKFST Fluticasone/Vilanterol [Breo Ellipta 100-25 Mcg Inhaler] 1 puff INHALATION RT -DAILY Multivitamins, Thera [Multivitamin (formulary)] 1 tab PO DAILY Ferrous Sulfate [Feosol] 325 mg PO DAILY Discharge Medication List Anastrozole [Arimidex] 1 mg PO DAILY 06/30/18 [History] Ferrous Sulfate [Feosol] 325 mg PO DAILY 06/30/18 [History] Fluticasone/Vilanterol [Breo Ellipta 100-25 Mcg Inhaler] 1 puff INHALATION RT- DAILY 06/30/18 [History] Glimepiride [Amaryl] 1 mg PO AC-BRKFST 06/30/18 [History] Hyoscyamine Sulfate [Levsin] 0.125 mg PO Q6H PRN 06/30/18 [History] Levothyroxine Sodium [Synthroid] 50 mcg PO DAILY 06/30/18 [History] Multivitamins, Thera [Multivitamin (formulary)] 1 tab PO DAILY 06/30/18 [History ] Oxybutynin Chloride [Ditropan] 5 mg PO DAILY 06/30/18 [History] Tiotropium 18 Mcg/Puff [Spiriva] 1 puff INHALATION RT-DAILY 06/30/18 [History] metFORMIN HCL [Glucophage] 500 mg PO BID 06/30/18 [History] Follow up Appointment(s)/Referral(s): None,Stated [Primary Care Provider] - 1-2 days Discharge Disposition: - Preliminary Cause of Preliminary Cause of : Status post cardiopulmonary arrest/PEA
[2018-07-04 08:03] LABS: ABG PH 7.06 (7.35-7.45)
[2018-07-04 08:04] LABS: ABG PH 7.15 (7.35-7.45)
== END 2018-07-01 18:31 | disposition expired | DRG 871 ==
LOC: EC 12:38 → 2SICU 13:00
PROVIDERS: ADMIT Hospitalist; ATTEND Hospitalist
PROC: 4A023N7 Measurement of Cardiac Sampling and Pressure, Left Heart, Percutaneous Approach (ICD-10-PCS; 2018-06-30)
PROC: B2111ZZ Fluoroscopy of Multiple Coronary Arteries using Low Osmolar Contrast (ICD-10-PCS; 2018-06-30)
PROC: B2151ZZ Fluoroscopy of Left Heart using Low Osmolar Contrast (ICD-10-PCS; 2018-06-30)
PROC: 5A1945Z Respiratory Ventilation, 24-96 Consecutive Hours (ICD-10-PCS; principal; 2018-06-30 13:00)
PROC: 05HN33Z Insertion of Infusion Device into Left Internal Jugular Vein, Percutaneous Approach (ICD-10-PCS; 2018-07-01)
DX: A41.9 Sepsis, unspecified organism (principal); R65.21 Severe sepsis with septic shock; J96.21 Acute and chronic respiratory failure with hypoxia; I26.99 Other pulmonary embolism without acute cor pulmonale; E87.2 Acidosis; G93.1 Anoxic brain damage, not elsewhere classified; J98.11 Atelectasis; N17.9 Acute kidney failure, unspecified; N39.0 Urinary tract infection, site not specified; J91.0 Malignant pleural effusion; Z68.42 Body mass index [BMI] 45.0-49.9, adult; I46.9 Cardiac arrest, cause unspecified; Z51.5 Encounter for palliative care; Z66 Do not resuscitate; J44.9 Chronic obstructive pulmonary disease, unspecified; E87.5 Hyperkalemia; I50.9 Heart failure, unspecified; J98.4 Other disorders of lung; E11.9 Type 2 diabetes mellitus without complications; E03.9 Hypothyroidism, unspecified; E66.9 Obesity, unspecified; K44.9 Diaphragmatic hernia without obstruction or gangrene; Z86.74 Personal history of sudden cardiac arrest; Z85.3 Personal history of malignant neoplasm of breast; Z79.811 Long term (current) use of aromatase inhibitors; Z79.890 Hormone replacement therapy; Z79.84 Long term (current) use of oral hypoglycemic drugs; Z79.899 Other long term (current) drug therapy; Z88.6 Allergy status to analgesic agent; Z88.8 Allergy status to other drugs, medicaments and biological substances; Z87.891 Personal history of nicotine dependence
CPT/HCPCS: 36415; 36600; 51702; 70450; 71045; 80048; 80053; 81001; 82550; 82553; 82805; 83036; 83735; 83880; 84100; 84484; 85025; 85379; 85610; 85730; 87077; 87086; 87186; 93005; 93458; 94002; 94003; 94640; 96374; 99291